=== PATIENT | female | born 1960 | race Caucasian/White ===

== ENCOUNTER → 2019-09-12 | Day surgery (SDC) | payer OTHER ==
--- NOTE | 2019-09-12 18:49 | OP ---
DATE OF OPERATION: 09/12/2019 PREOPERATIVE DIAGNOSIS: Abnormal left mammography. POSTOPERATIVE DIAGNOSIS: Abnormal left mammography. PROCEDURE PERFORMED: Left breast stereotactic needle biopsy with clip. SURGEON: Olimpia Blount MD ANESTHESIA: Local. COMPLICATIONS: None. DISPOSITION: Stable at the end of the procedure. INDICATIONS FOR PROCEDURE: The patient presented with a screening mammography that noted a new density in the upper outer left breast. Ultrasound was negative. Therefore, recommendation was a sternocleidomastoid needle biopsy. The procedure was discussed with her and all of her questions answered. DESCRIPTION OF PROCEDURE: The patient was brought to [facility] in [place], laid prone on the Lor[place] table. After several different approaches were tried, I was able to see the nodule in the lateral medial view in the upper outer left breast. A sterile prep was obtained. A target was chosen. There was a positive stroke margin. Using Betadine and 1% lidocaine, a 9-gauge Suros device was used to take several cores from this nodule. The cores were sent to Pathology in formalin. A clip was deployed in the area. Hemostasis was assured with direct pressure. The post-exam stereo showed the clip within this mass. Steri-Strips were used to close the incision. She tolerated the procedure well. She left the breast imaging center in good condition. OLIMPIA BLOUNT M.D. [id number]
--- NOTE | 2019-09-13 15:02 | PATH ---
Surgical Pathology Report Patient Name: LUTHER CHARLES [facility] Rec. #: [id number] /Age/Gender: 1960 (Age: 59) / F Account: [id number] Location: [facility] Taken: 09/12/2019 Received: 09/12/2019 Reported: 09/13/2019 Physicians: Olimpia Blank M.D. Specimen(s) Received LEFT BREAST SPECIMEN WITH DENSITY Clinical History Nonpalpable lesion Mammographic findings: Suspicious density upper outer quadrant left Final Diagnosis BREAST, LEFT, DENSITY, STEREOTACTIC BIOPSY: INVASIVE DUCTAL CARCINOMA, WELL DIFFERENTIATED (BA GRADE 1), MEASURING AT LEAST 6 MM IN GREATEST DIMENSION IN THIS MATERIAL. (SEE NOTE). FOCAL DUCTAL CARCINOMA IN SITU (DCIS), SOLID TYPE, LOW NUCLEAR GRADE. Note: Myoepithelial immunohistochemical markers (SMM-HC and p63, performed at [facility]) demonstrate the absence of myoepithelial cells in the invasive carcinoma. This finding supports the diagnosis. Case discussed with on 09/13/19. Results of ER and SC studies performed on block 2 at [facility] are as follows: ER (clone [id number] mouse monoclonal antibody by [employer]): 100 % nuclear staining with strong intensity (positive). SC (clone16 mouse monoclonal antibody by [employer]): > 95 % nuclear staining with strong intensity (positive). Results of Her2 & Ki67 studies will be reported separately in an addendum. Positive and negative controls (internal if applicable) show appropriate results. Formalin fixation and cold ischemic times are within current ASCO/CAP recommendations for ER, SC and Her2 testing. Electronically Signed Heide Casillas M.D. Addendum Reported: 09/14/2019 Addendum Diagnosis Results of Her2 (IHC) & Ki-67 studies performed on block 2 at [place], [place] ([id number]) are as follows: Her2 IHC (EP3 from [employer], formerly known as [id number], using [employer] Polymer Refine detection kit):0 (negative). Ki-67: ~10% (low proliferative index). Positive and negative controls (internal if applicable) show appropriate results. Heide Casillas M.D. Gross Description Received in formalin labeled "left breast with density," is a 4.5 x 2.5 x 0.3 cm aggregate of multiple matias-yellow, irregular to cylindrical portions of fibroadipose tissue. The formalin is filtered and the specimen is entirely submitted in 2 cassettes. Time to formalin fixation: 5 minutes Total formalin fixation time: Approximately 6 hours. 09/12/2019 [facility]09/12/2019
== END | disposition home or self-care (01) ==
LOC: FMAMMOTONE 11:13
PROVIDERS: ATTEND Surgery
PROC: 0HBU3ZX Excision of Left Breast, Percutaneous Approach, Diagnostic (ICD-10-PCS; principal; 2019-09-12)
DX: C50.412 Malignant neoplasm of upper-outer quadrant of left female breast (principal); Z17.0 Estrogen receptor positive status [ER+]; R92.1 Mammographic calcification found on diagnostic imaging of breast
CPT/HCPCS: 19081; A4648